=== PATIENT | female | born 1980 | race Asian ===

== ENCOUNTER 2020-04-01 09:27 | Outpatient (CLI) | payer BC, OTHER | END 2020-04-01 19:07 | disposition home or self-care (01) | LOC: LAB 09:27 | DX: U07.1 COVID-19 (principal); Z20.828 Contact with and (suspected) exposure to other viral communicable diseases | CPT/HCPCS: 87635; G2023; U0003 ==

== ENCOUNTER 2021-09-24 14:31 | Outpatient (CLI) | payer BC | END 2021-09-24 21:42 | disposition home or self-care (01) | LOC: RAD 14:31 | PROVIDERS: ATTEND Family Medicine | DX: R07.9 Chest pain, unspecified (principal); R07.81 Pleurodynia ==

== ENCOUNTER 2023-01-06 16:22 | Outpatient (CLI) | payer OTHER | END 2023-01-06 19:01 | disposition home or self-care (01) | LOC: US 16:22 | PROVIDERS: ATTEND Family Medicine | DX: M79.604 Pain in right leg (principal); R60.0 Localized edema; F90.9 Attention-deficit hyperactivity disorder, unspecified type ==

== ENCOUNTER 2023-07-06 08:26 | Outpatient (CLI) | payer OTHER | END 2023-07-06 19:04 | disposition home or self-care (01) | LOC: MAMMO 08:26 | PROVIDERS: ATTEND Nurse Practitioner Family | DX: Z12.31 Encounter for screening mammogram for malignant neoplasm of breast (principal) ==